=== PATIENT | male | born 1960 | race Caucasian/White ===

== ENCOUNTER 2018-03-20 12:31 | Emergency (ER) | payer BC | END 2018-03-20 14:00 | disposition home or self-care (01) | LOC: M ED 12:31 | DX: H53.9 Unspecified visual disturbance (principal); C43.59 Malignant melanoma of other part of trunk; E03.9 Hypothyroidism, unspecified; Z79.899 Other long term (current) drug therapy; Z79.51 Long term (current) use of inhaled steroids; Z87.891 Personal history of nicotine dependence; Z82.49 Family history of ischemic heart disease and other diseases of the circulatory system; Z80.7 Family history of other malignant neoplasms of lymphoid, hematopoietic and related tissues | CPT/HCPCS: 99283 ==

== ENCOUNTER → 2018-03-20 | Outpatient (REF) | payer BC ==
[2018-03-20 16:23] LABS: FREE T4 3.31 NG/DL (0.76-1.46)
[2018-03-20 16:31] LABS: THYROID PEROXIDASE ANTIBODY 55.4 U/ML (<60.0)
== END ==
LOC: M LABDRAW1 14:54
DX: E05.00 Thyrotoxicosis with diffuse goiter without thyrotoxic crisis or storm (principal)
CPT/HCPCS: 86800

== ENCOUNTER → 2018-04-04 | Outpatient (CLI) | payer BC | LOC: M RAD 12:26 | DX: E05.00 Thyrotoxicosis with diffuse goiter without thyrotoxic crisis or storm (principal) | CPT/HCPCS: 78012 ==

== ENCOUNTER → 2018-08-09 | Outpatient (CLI) | payer BC | LOC: M RAD 16:36 | DX: J32.4 Chronic pansinusitis (principal); J34.2 Deviated nasal septum | CPT/HCPCS: 70486 ==

== ENCOUNTER → 2022-07-20 | Outpatient (CLI) | payer BC ==
[~2022-07-20] MED LIST: DEXA4TA PO; FLUT1INH IN; HYDR-3713 PO; HYDR2TAB2 PO; HYDR4TAB PO; LEVO125T4 PO; ONDA4TAB6 PO; OPDI1INJ IV; PANT40TA29 PO
== END ==
LOC: M ONCR 14:40
PROVIDERS: ATTEND General Practice
DX: C43.59 Malignant melanoma of other part of trunk (principal); G89.3 Neoplasm related pain (acute) (chronic); K21.9 Gastro-esophageal reflux disease without esophagitis; E03.2 Hypothyroidism due to medicaments and other exogenous substances; Z79.891 Long term (current) use of opiate analgesic

== ENCOUNTER → 2022-07-28 | Outpatient (RCR) | payer BC | LOC: M ONCR 07-22 07:14 | PROVIDERS: ATTEND General Practice | DX: C43.59 Malignant melanoma of other part of trunk (principal) ==

== ENCOUNTER 2022-08-10 14:56 | Outpatient (RCR) | payer BC ==
[~2022-08-10 14:56] MED LIST changes: +MORP-69 PO
[2022-08-16] MEDS ORDERED: MORP-69 PO (15:41)
[2022-08-20] MEDS ORDERED: MORP30TASA PO (16:48)
== END 2022-08-27 ==
LOC: M ONCR 14:56
PROVIDERS: ATTEND General Practice
DX: C43.59 Malignant melanoma of other part of trunk (principal)

== ENCOUNTER → 2022-08-17 | Outpatient (CLI) | payer BC ==
[~2022-08-17] MED LIST changes: +MORP30TASA PO; +PROHANCE 279.3MG/ML 15ML VIAL ONE
== END ==
LOC: M PLAIMG 13:15
PROVIDERS: ATTEND Internal Medicine Hematology & Oncology
DX: C43.62 Malignant melanoma of left upper limb, including shoulder (principal)
CPT/HCPCS: 70553; A9576